=== PATIENT | female | born 1965 | race Caucasian/White ===

== ENCOUNTER → 2017-04-01 | Day surgery (SDC) | payer OTHER ==
[~2017-04-01] VITALS: Ht 160 cm; Wt 66.1 kg
[~2017-04-01] MED LIST: ACETAMINOPHEN 1000 MG/100 ML 100 ML IV SCH; BUPIVACAINE HCL PF 0.5% 30 ML VIAL ONE; CHLORHEXIDINE GLUCONATE 2 % 1 PACK (2 CLOTHS) TOPICAL PRN; DEXAMETHASONE SOD PHOS 4 MG/ML VIAL IV ONE; DO NOT ADM ANY ANTICOAGULANT DRUGS PRN; HEPARIN SODIUM - SQ 10,000 UNITS/ML VIAL ONE; INSULIN HUMAN REGULAR 1,000 UNITS/10 ML VIAL SQ PRN; LACTATED RINGER'S 1000 ML IV PRN; LIDOCAINE 1%/EPINEPHrine 1:100,000 SOLN 30 ML VIAL ONE; LIDOCAINE HCL 1% PF 5 ML SYRINGE OTHER ONE; METOPROLOL TARTRATE 25 MG TAB PO PRN; MIDAZOLAM HCL 2 MG/2 ML VIAL ONE; MORPHINE SULFATE 4 MG/ML INJ IV PUSH PRN; ONDANSETRON HCL 4 MG/2 ML VIAL IV PUSH PRN; OXYC1TAB63 PO; POVIDONE IODINE 5% (ANTISEPSIS KIT) 4 APPLICATIONS EACH NARE PRN; PROPOFOL 200 MG/20 ML AMP IV ONE; SODIUM CHLORID 0.9% 500 ML IV PRN; SODIUM CHLORIDE 0.9% 20 ML VIAL ONE; SODIUM CHLORIDE 0.9% FLUSH 10 ML FLUSH IV FLUSH PRN; SODIUM CHLORIDE 0.9% FLUSH 10 ML FLUSH IV FLUSH SCH; ceFAZolin 2 GM PREMIX 50 ML IV SCH; ePHEDrine/NS 25 MG/5 ML SYRINGE IV ONE; oxyCODONE/ACETAMINOPHEN 5 MG/325 MG TAB PO PRN
--- NOTE | 2017-04-01 12:21 | PD.OP ---
cc: Godfrey Bain MD Operative Report Date of Surgery: Apr 01, 2017 Preoperative Diagnosis: (1) Metastatic colon cancer to liver Postoperative Diagnosis: (1) Metastatic colon cancer to liver Procedure: Left subclavian [id number] placement Anesthesia: Gen Surgeon: Godfrey Bain Stab Setter And Driller(s): Sahara [id number] Operation and Findings: Complications: None EBL: 10 cc Operative findings: Uncomplicated placement of left subclavian Xcela power injectable port at 19 cm. Procedure in detail: The patient was taken to the operating room and placed in supine position. General anesthesia was induced. The upper chest and neck was prepped and draped in usual sterile fashion and a surgical timeout was performed to verify correct patient procedure and site. Appropriate preoperative antibiotics were administered. The patient was placed in mild Trendelenburg position. Lidocaine with epinephrine was injected in the skin and subcutaneous tissue in the left upper chest. The left subclavian vein was cannulated with the large-bore needle. The wire was easily advanced and visualized with fluoroscopy. An approximately 3 cm transverse incision was made and a port pocket created by blunt dissection and the use of Metzenbaum scissors. The dilator and sheath were inserted under fluoroscopic visualization. The wire and dilator were then removed. The catheter length was chosen based on fluoroscopy and it was cut to 19 cm. The port and catheter were connected and the catheter then inserted. The port was placed in the port pocket. The Jones needle was used to access the port with blood return and it flushed easily. The incision was closed with 3-0 subcutaneous Vicryl sutures and the skin with subcuticular 4-0 Monocryl as well as Dermabond. A dressing was applied. The patient tolerated the procedure well and was taken to same day surgery. Godfrey Bain MD Apr 01, 2017 12:21
--- NOTE | 2017-04-01 13:00 | RADRPT ---
EXAM DATE/TIME: 04/01/2017 12:38 [facility] COMPARISON: No previous studies available for comparison. INDICATIONS : Post infusaport placement. MEDICAL HISTORY : colon ca SURGICAL HISTORY : None. ENCOUNTER: Initial ACUITY: 1 day PAIN SCORE: 0/10 LOCATION: Bilateral chest FINDINGS: Portable upright AP view of the chest demonstrates a normal-sized cardiac silhouette. Left chest wall [id number] is present and has been placed through subclavian approach. Distal tip is in the super ior aspect of the SVC. No pneumothorax is visualized. No effusion or consolidation is present. Bones and soft tissues demonstrate no acute finding. CONCLUSION: No acute cardiopulmonary abnormality is identified. Darrick Kelley MD on April 01, 2017 at 12:56 Board Certified Radiologist. This report was verified electronically.
[2017-04-01 14:02] VITALS: BP 113/68; PULSE 84; RESP 20; TEMP 97.8; O2SAT 97
== END | disposition home or self-care (01) ==
LOC: HSDC 08:33
PROVIDERS: ATTEND Surgery
DX: C18.9 Malignant neoplasm of colon, unspecified (principal); C78.7 Secondary malignant neoplasm of liver and intrahepatic bile duct; K30 Functional dyspepsia; E66.3 Overweight
CPT/HCPCS: 00532; 36561; 71045; 77001; C1788; J0131; J0690; J1100; J1644; J2250; J3010; J7120